=== PATIENT | female | born 1995 | race Asian ===

== ENCOUNTER 2022-10-17 19:30 | Inpatient (IN) | payer BC ==
[2022-10-17 20:34] VITALS: BMI 26.9
[2022-10-17 20:38] LABS: BASO % 0.1 % (0-2.0); EOS % 0.2 % (0-4.5); HEMATOCRIT 42.8 % (32.4-45.2); HEMOGLOBIN 14.1 GM/dL (10.7-15.3); LYMPH % 9.4 % (8-40); MCH 28.6 pg (25.7-33.7); MEAN CELL VOLUME 86.7 fl (80-96); MEAN PLT VOLUME 8.4 fl (7.5-11.1); MONO % 5.5 % (3.8-10.2); NEUT % 84.8 % (42.8-82.8); PLATELET COUNT 280 10^3/uL (134-434); RBC 4.93 M/mm3 (3.60-5.2); WHITE BLOOD COUNT 15.6 K/mm3 (4.0-10.0)
[2022-10-17] MEDS ORDERED: ELECTROLYTE-148 SOLN 1,000 ML IV SCH (20:45)
[2022-10-17 20:53] LABS: INR 0.9 (0.83-1.09); PROTHROMBIN TIME (PATIENT) 10.4 SEC (9.7-13.0)
[2022-10-17 20:55] LABS: ACTIVATED PTT 28.6 SECONDS (25.2-36.5)
[2022-10-17] MEDS ORDERED: OXYTOCIN 20 UNITS in 0.9% NS 20 UNIT/1,000 ML INFUS.BAG IV ONE (21:03)
[2022-10-17] MEDS ORDERED: LIDOCAINE HCL 1% PRESERVATIVE FREE - 30ML VIAL ONE (21:03)
[2022-10-17] MEDS ORDERED: OXYTOCIN 30 UNITS in 0.9% NS 30 UNIT/500 ML INFUS.BAG IVPB ONE (21:22)
[2022-10-17] MEDS ORDERED: OXYTOCIN 30 UNITS in 0.9% NS 30 UNIT/500 ML INFUS.BAG IVPB SCH (21:30)
[2022-10-17 21:33] LABS: POTASSIUM 3.7 mmol/L (3.5-5.1)
[2022-10-17 21:34] LABS: CALCIUM 9.9 mg/dL (8.5-10.1)
[2022-10-17 21:35] LABS: BLOOD UREA NITROGEN 12.1 mg/dL (7-18)
[2022-10-17 21:38] LABS: CREATININE 0.6 mg/dL (0.55-1.3)
[2022-10-17] MEDS ORDERED: WITCH HAZEL 50% (TUCKS) 40 PAD/JAR PAD TP PRN (22:37)
[2022-10-17] MEDS ORDERED: BISACODYL 10 MG SUPP.RECT RC PRN (22:37)
[2022-10-17] MEDS ORDERED: BENZOCAINE 20% 57 GM BOTTLE TP PRN (22:37)
[2022-10-17] MEDS ORDERED: ACETAMINOPHEN 325 MG TABLET (FP) PO PRN (22:37)
[2022-10-17] MEDS ORDERED: METHYLERGONOVINE MALEATE 0.2 MG/1 ML AMP IM PRN (22:37)
[2022-10-17] MEDS ORDERED: BENZOCAINE 28 GM HEMORRHOIDAL OINTMENT TP PRN (22:37)
[2022-10-17] MEDS ORDERED: IBUPROFEN 600 MG TABLET (FP) PO ONE (22:40)
[2022-10-17] MEDS: IBUPROFEN 600 MG TABLET (FP) PO PRN (22:43)
[2022-10-17] MEDS ORDERED: OXYTOCIN 20 UNITS in 0.9% NS 20 UNIT/1,000 ML INFUS.BAG IV SCH (22:45)
[2022-10-18 07:55] LABS: BASO % 0.2 % (0-2.0); EOS % 0.1 % (0-4.5); HEMATOCRIT 35.5 % (32.4-45.2); HEMOGLOBIN 11.6 GM/dL (10.7-15.3); LYMPH % 9.8 % (8-40); MCH 28.5 pg (25.7-33.7); MCHC 32.6 g/dl (32.0-36.0); MEAN CELL VOLUME 87.5 fl (80-96); MEAN PLT VOLUME 8.5 fl (7.5-11.1); MONO % 7.5 % (3.8-10.2); NEUT % 82.4 % (42.8-82.8); PLATELET COUNT 238 10^3/uL (134-434); RBC 4.05 M/mm3 (3.60-5.2); RDW 14.3 % (11.6-15.6); WHITE BLOOD COUNT 17.8 K/mm3 (4.0-10.0)
[2022-10-18] MEDS: FERROUS SO4 325 MG TABLET (FP) PO SCH ×2 (08:21→18:09)
[2022-10-18] MEDS: PRENATAL VITAMINS W/ FOLIC ACID TABLET (FP) PO SCH (09:35)
[2022-10-18] MEDS: IBUPROFEN 600 MG TABLET (FP) PO PRN (20:47)
[2022-10-18] MEDS ORDERED: SENNOSIDES/DOCUSATE COMBO (SENNA PLUS) TABLET (UD) PO PRN (22:00)
[2022-10-19] MEDS: FERROUS SO4 325 MG TABLET (FP) PO SCH (09:31)
[2022-10-19] MEDS: PRENATAL VITAMINS W/ FOLIC ACID TABLET (FP) PO SCH (09:31)
[2022-10-19 09:33] VITALS: BP 128/90; PULSE 90; RESP 16; TEMP 98.1
== END 2022-10-19 13:20 | disposition home or self-care (01) | DRG 807 ==
LOC: JDEL 19:30 → JLDR 20:00 → J3W 10-18 01:23
PROVIDERS: ADMIT Obstetrics & Gynecology; ATTEND Obstetrics & Gynecology
PROC: 10E0XZZ Delivery of Products of Conception, External Approach (ICD-10-PCS; principal; 2022-10-17)
PROC: 0W8NXZZ Division of Female Perineum, External Approach (ICD-10-PCS; 2022-10-17)
PROC: 0HQ9XZZ Repair Perineum Skin, External Approach (ICD-10-PCS; 2022-10-17)
DX: O24.424 Gestational diabetes mellitus in childbirth, insulin controlled (principal); Z37.0 Single live birth; O70.0 First degree perineal laceration during delivery; Z3A.38 38 weeks gestation of pregnancy
CPT/HCPCS: 36415; 80048; 85025; 85610; 85730; 86780; 86850; 86900; 86901

== ENCOUNTER 2024-11-08 04:39 | Inpatient (IN) | payer BC, OTHER ==
[2024-11-08] MEDS ORDERED: ONDANSETRON 4 MG/2 ML VIAL ONE (05:00)
[2024-11-08] MEDS ORDERED: ACETAMINOPHEN INJECTION 100 ML ONE (05:00)
[2024-11-08] MEDS: SODIUM CHLORIDE 0.9% 500 ML INFUS.BAG IV ONE (05:44)
[2024-11-08] MEDS: ACETAMINOPHEN 1000 MG/100 ML BAG IVPB ONE (05:45)
[2024-11-08] MEDS: ONDANSETRON 4 MG/2 ML VIAL IVPUSH ONE (05:45)
[2024-11-08 05:56] LABS: EPI CELLS 12 /uL (0-25.1); HYALINE CASTS 0 /uL (0-3.1); URINE APPEARANCE CLEAR; URINE BACTERIA 30 /uL (0-1359); URINE BILIRUBIN NEGATIVE (NEGATIVE); URINE COLOR YELLOW; URINE GLUCOSE (UA) TRACE (NEGATIVE); URINE KETONE TRACE (NEGATIVE); URINE LEUK ESTERASE NEGATIVE (NEGATIVE); URINE NITRITE NEGATIVE (NEGATIVE); URINE PROTEIN TRACE (NEGATIVE); URINE RBC 185 /uL (0-23.9); URINE UROBILINOGEN 0.2 mg/dL (0.2-1.0); URINE WBC 13 /uL (0-25.8)
[2024-11-08 06:54] LABS: ABSOLUTE IMMATURE GRANULOCYTES 0.03 x10^3/uL (0.0-0.031); BASOPHILS # 0.02 x10^3/uL (0.01-0.08); EOSINOPHIL % 0.2 % (0.7-5.8); EOSINOPHILS # 0.02 x10^3/uL (0.04-0.36); MCHC 32.6 g/dl (32.2-35.5); MEAN CELL VOLUME 88.4 fl (79.4-94.8); MEAN PLT VOLUME 9.4 fl (9.4-12.3); MONOCYTE # 0.31 x10^3/uL (0.24-0.86); MONOCYTE % 3.0 % (4.7-12.5); RDW 12.6 % (12.1-16.8)
[2024-11-08 07:04] LABS: GLUCOSE,RANDOM 108 mg/dL (74-106)
[2024-11-08 07:05] LABS: TOT PROT 5.3 g/dl (6.4-8.2)
[2024-11-08 07:06] LABS: CO2 14 mmol/L (21-32)
[2024-11-08 07:07] LABS: ALK PHOS 34 U/L (40-150)
[2024-11-08 07:10] LABS: CREATININE 0.50 mg/dL (0.55-1.3); SGOT/AST 17 U/L (5-34); SGPT/ALT 9 U/L (0-55)
[2024-11-08 07:55] LABS: MCHC 33.2 g/dl (32.2-35.5); MEAN CELL VOLUME 86.7 fl (79.4-94.8); MEAN PLT VOLUME 9.1 fl (9.4-12.3); RDW 12.6 % (12.1-16.8)
[2024-11-08] MEDS ORDERED: KETOROLAC TROMETHAMINE 15 MG/ML VIAL ONE (08:10)
[2024-11-08] MEDS: KETOROLAC TROMETHAMINE 15 MG/ML VIAL IVPUSH ONE (08:17)
[2024-11-08 08:23] LABS: GLUCOSE,RANDOM 126.0 mg/dL (74-106); TOT PROT 7.8 g/dl (6.4-8.2)
[2024-11-08 08:24] LABS: CO2 21.0 mmol/L (21-32)
[2024-11-08 08:25] LABS: ALK PHOS 87.0 U/L (40-150)
[2024-11-08] MEDS ORDERED: PIPERACILLIN/TAZOB 4.5 GM 4.5 GM/100 ML BAG IVPB ONE (08:27)
[2024-11-08 08:28] LABS: SGOT/AST 18.0 U/L (5-34); SGPT/ALT 15.0 U/L (0-55)
[2024-11-08 08:29] LABS: CREATININE 0.73 mg/dL (0.55-1.3)
[2024-11-08] MEDS: PIPERACILLIN/TAZOB 4.5 GM 4.5 GM in DEXTROSE 5%-WATER 100 ML IVPB ONE (08:40)
[2024-11-08] MEDS ORDERED: TAMSULOSIN HCL 0.4 MG CAP ONE (09:17)
[2024-11-08] MEDS: TAMSULOSIN HCL 0.4 MG CAP PO ONE (09:26)
[2024-11-08] MEDS ORDERED: ONDANSETRON 4 MG/2 ML VIAL IVPUSH PRN (09:45)
[2024-11-08] MEDS ORDERED: KETOROLAC TROMETHAMINE 15 MG/ML VIAL IVPUSH PRN (09:45)
[2024-11-08 09:58] LABS: HIV INTERPRETATION NEGATIVE (NEGATIVE)
[2024-11-08 09:59] LABS: HCV DIAGNOSTIC IN-HOUSE W/RFLX NON-REACTIVE (NONREACTIVE)
[2024-11-08] MEDS ORDERED: CEFTRIAXONE 1 GM/50 ML BAG ONE (10:03)
[2024-11-08] MEDS ORDERED: ENOXAPARIN NA (PORCINE) 40 MG/0.4 ML DISP.SYRIN SQ ONE (10:03)
[2024-11-08] MEDS: ENOXAPARIN NA (PORCINE) 40 MG/0.4 ML DISP.SYRIN SQ SCH (10:18)
[2024-11-08] MEDS: SODIUM CHLORIDE 1,000 ML IV SCH (10:18)
[2024-11-08] MEDS: CEFTRIAXONE 1 GM in DEXTROSE 5%-WATER - 50 ML IVPB SCH (10:18)
[2024-11-08 12:15] VITALS: BMI 24.5
[2024-11-09 09:55] LABS: ABSOLUTE IMMATURE GRANULOCYTES 0.01 x10^3/uL (0.0-0.031); BASOPHILS # 0.03 x10^3/uL (0.01-0.08); EOSINOPHIL % 1.9 % (0.7-5.8); EOSINOPHILS # 0.12 x10^3/uL (0.04-0.36); MCHC 31.7 g/dl (32.2-35.5); MEAN CELL VOLUME 88.8 fl (79.4-94.8); MEAN PLT VOLUME 9.1 fl (9.4-12.3); MONOCYTE # 0.33 x10^3/uL (0.24-0.86); MONOCYTE % 5.3 % (4.7-12.5); RDW 12.9 % (12.1-16.8)
[2024-11-09 10:02] LABS: INR 0.97 (0.83-1.09); PROTHROMBIN TIME (PATIENT) 10.7 SEC (9.7-13.0)
[2024-11-09] MEDS: TAMSULOSIN HCL 0.4 MG CAP PO SCH (10:10)
[2024-11-09 10:56] LABS: GLUCOSE,RANDOM 100.0 mg/dL (74-106)
[2024-11-09 10:57] LABS: TOT PROT 7.2 g/dl (6.4-8.2)
[2024-11-09 10:58] LABS: CO2 24.0 mmol/L (21-32)
[2024-11-09 10:59] LABS: ALK PHOS 73.0 U/L (40-150)
[2024-11-09 11:02] LABS: SGOT/AST 15.0 U/L (5-34); SGPT/ALT 12.0 U/L (0-55)
[2024-11-09 12:05] LABS: CREATININE 0.56 mg/dL (0.55-1.3)
[2024-11-09] MEDS ORDERED: MIDAZOLAM HCL 2 MG/2 ML SINGLE DOSE VIAL ONE (14:00)
[2024-11-09] MEDS ORDERED: PROPOFOL 20 ML ONE (14:00)
[2024-11-09] MEDS ORDERED: DEXAMETHASONE SOD PHOSPHATE 4 MG/1 ML VIAL ONE (14:27)
[2024-11-09] MEDS ORDERED: KETOROLAC TROMETHAMINE 30 MG/1 ML VIAL ONE (14:27)
[2024-11-09] MEDS ORDERED: ONDANSETRON 4 MG/2 ML VIAL ONE (14:27)
[2024-11-09] MEDS ORDERED: KETOROLAC TROMETHAMINE 15 MG/ML VIAL IVPUSH PRN (15:01)
[2024-11-09] MEDS ORDERED: SODIUM CHLORIDE 1,000 ML IV SCH (15:01)
[2024-11-09 16:48] VITALS: BP 114/76; PULSE 78; RESP 16; TEMP 97.8
[2024-11-10] MEDS ORDERED: TAMSULOSIN HCL 0.4 MG CAP PO SCH (08:30)
[2024-11-10] MEDS ORDERED: ENOXAPARIN NA (PORCINE) 40 MG/0.4 ML DISP.SYRIN SQ SCH (10:00)
[2024-11-10] MEDS ORDERED: CEFTRIAXONE 1 GM in DEXTROSE 5%-WATER - 50 ML IVPB SCH (10:00)
== END 2024-11-09 19:05 | disposition home or self-care (01) | DRG 446 ==
LOC: JER 04:39 → JERBED 09:13 → J8W 11:12 → OBSVTOIN 17:21
PROVIDERS: ADMIT Student in an Organized Health Care Education/Training Program; ATTEND Nurse Practitioner Family
PROC: 0TC68ZZ Extirpation of Matter from Right Ureter, Via Natural or Artificial Opening Endoscopic (ICD-10-PCS; principal; 2024-11-09 15:00)
PROC: 0T768DZ Dilation of Right Ureter with Intraluminal Device, Via Natural or Artificial Opening Endoscopic (ICD-10-PCS; 2024-11-09 15:00)
PROC: BT1DZZZ Fluoroscopy of Right Kidney, Ureter and Bladder (ICD-10-PCS; 2024-11-09 15:00)
DX: N13.6 Pyonephrosis (principal); R73.9 Hyperglycemia, unspecified; K44.9 Diaphragmatic hernia without obstruction or gangrene
CPT/HCPCS: 36415; 74177-TC; 80053; 81003; 82360; 82962; 83036; 83690; 83735; 84100; 84443; 84484; 84703; 85025; 85610; 86803; 86850; 86900; 86901; 87086; 87389; 88300-TC; 93005; 93010; 94760; 99285-25; C1758; C2617; G0378; Q9967